=== PATIENT | male | born 1985 | race Caucasian/White ===

== ENCOUNTER 2023-01-22 13:30 | Emergency (ER) | payer OTHER, SELFPAY ==
[2023-01-22 13:34] VITALS: BP 137/89; PULSE 66; RESP 14; TEMP 36.9; O2SAT 98; BMI 21.2
--- NOTE | 2023-01-22 13:41 | PC.NURSE ---
Visual acuity: Right eye-20/40, left eye-20/40, bilateral eyes-20/30. Clear drainage from left eye with redness surrounding eye area.
[2023-01-22] MEDS: TETRACAINE HCL 0.5% OP SOL 80 DROP/4 ML BOTTLE OP (14:08)
[2023-01-22] MEDS: FLUORESCEIN SODIUM 1 MG STRIP OP (14:08)
--- NOTE | 2023-01-22 14:10 | ED.EYEPROB1 ---
HPI - Eye Problem General Chief complaint: Eye Problems Stated complaint: L EYE- THINKS A PIECE OF STEEL MIGHT BE IN IT Time Seen by Provider: 01/22/23 13:37 Source: patient Mode of arrival: walk-in History of Present Illness HPI Narrative: 4 days ago the patient had a foreign body into his left eye despite wearing a face shield. he tried to flush out the eye without improvement. Since then the eye has continued to tear up and now there is redness and drainage from the left eye. Vision is not affected. tetanus not up to date. He does not have a local eye physician,. He does not wear glasses or contact lenses. Related Data Previous Rx's Medication Instructions Recorded tobramycin 0.3 %-dexamethasone 0.1 1 drp ophthalmic (eye) Q6H 5 days 01/22/23 % eye drops,suspension #2.5 mL Allergies Allergy/AdvReac Type Severity Reaction Status Date / Time No Known Drug Allergies Allergy Verified 01/22/23 13:37 Exam Narrative Exam Narrative: General: The patient appears well and in no apparent distress. Patient is resting comfortably on cart. Skin: Warm, dry, no pallor noted. Head: Normocephalic, atraumatic Neck: Supple, trachea mid-line, no tenderness, no lymphadenopathy Eye: Normal extraocular motion without associated pain. Pupils equal, round and reactive to light. Conjunctival injection noted. No swelling of the upper/lower eyelid. Patient's upper eyelid was everted - no evidence of foreign body. Foeign body noted on the cornea at 2 o'clock position. The patient had ALCAINE/TETRACAINE applied to the left/right eye with fluorescein dye instilled afterward. Exam with Wood's lamp showed uptake at the same portion of the cornea. No evidence of hyphema, dendritic lesion, corneal ulcerations, preseptal cellulitis or orbital cellulitis. Ears, Nose, Mouth, and Throat: oral mucosa is moist Respiratory: Patient is in no distress Neurological: A&O x4, normal speech Psychiatric: Cooperative and interactive. Constitutional Vital Signs, click to edit/add: Last Vital Signs Temp 98.5 F 01/22/23 13:34 Pulse 66 01/22/23 13:34 Resp 14 01/22/23 13:34 BP 137/89 01/22/23 13:34 Pulse Ox 98 01/22/23 13:34 O2 Del Method Room Air 01/22/23 13:34 Course Vital Signs Vital signs: Vital Signs Temperature 98.5 F 01/22/23 13:34 Pulse Rate 66 01/22/23 13:34 Respiratory Rate 14 01/22/23 13:34 Blood Pressure 137/89 01/22/23 13:34 Pulse Oximetry 98 01/22/23 13:34 Oxygen Delivery Method Room Air 01/22/23 13:34 Temperature 98.5 F 01/22/23 13:34 Pulse Rate 66 01/22/23 13:34 Respiratory Rate 14 01/22/23 13:34 Blood Pressure 137/89 01/22/23 13:34 Pulse Oximetry 98 01/22/23 13:34 Oxygen Delivery Method Room Air 01/22/23 13:34 MDM - Eye Problem MDM Narrative Medical decision making narrative: Tetracaine applied to left eye and I examined underneath the eyelid as well as the corneal and conjunctival surface. Foreign body noted at 2 o clock position of cornea. The foreign body was driven into the cornea and I was unable to remove it with needle tip. Patient discharged home with prescription for ophthalmic antibiotic and was given referral info for 2 local optometrists and local medical laboratory manager - he needs to see whoever can see him tomorrow. He had his tetanus updated. Discharge Plan Discharge Chief Complaint: Eye Problems Clinical Impression: Acute foreign body of left cornea Patient Disposition: Home, Self-Care Time of Disposition Decision: 14:09 Prescriptions / Home Meds: New tobramycin-dexamethasone 0.3-0.1 % drops,suspension 1 drp ophthalmic (eye) Q6H 5 Days Qty: 2.5 0RF Instructions: Eye Foreign Body (ED) Stand Alone Forms: Portal Instructions Referrals: Amadou Ashton MD [Physician] - As soon as possible CONSUELO CAMPBELL [Physician] - As soon as possible CONSUELO SHAH [Physician] - As soon as possible Physician,Non-Staff, [Primary Care Provider] - 1 week
[2023-01-22] MEDS: ADACEL DIPH,PERTUSS(ACELL),TET VAC/PF 0.5 ML ADULT SYRINGE IM (14:20)
== END 2023-01-22 14:31 | disposition home or self-care (01) ==
PROVIDERS: Emergency Provider Emergency Medicine
DX: T15.02XA Foreign body in cornea, left eye, initial encounter (principal); Z23 Encounter for immunization
CPT/HCPCS: 90471; 90715; 99283